=== PATIENT | female | born 1975 | race Hispanic/Latino ===

== ENCOUNTER 2021-10-05 08:12 | Outpatient (CLI) | payer OTHER ==
[2021-10-05] MEDS ORDERED: Iopamidol-370 76% 500 ML 1 ML ONE (11:28)
== END 2021-10-05 08:13 | disposition home or self-care (01) ==
LOC: BICCT 08:12
PROVIDERS: ATTEND Family Medicine
DX: K21.9 Gastro-esophageal reflux disease without esophagitis (principal); R10.12 Left upper quadrant pain; Z90.49 Acquired absence of other specified parts of digestive tract
CPT/HCPCS: 74177; Q9967

== ENCOUNTER 2021-11-04 09:11 | Outpatient (CLI) | payer OTHER | END 2021-11-04 09:12 | disposition home or self-care (01) | LOC: RAD 09:11 | PROVIDERS: ATTEND Family Medicine | DX: R10.13 Epigastric pain (principal) | CPT/HCPCS: 74246 ==